=== PATIENT | male | born 1945 | race Caucasian/White ===

== ENCOUNTER 2018-06-05 20:43 | Emergency (ER) | payer OTHER ==
--- NOTE | 2018-06-05 21:13 | ERPHSYRPT ---
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 Exam Limitations: clinical condition Patient Subjective Stated Complaint: shortness of breath Triage Nursing Assessment: Pt was at a ball game as a spectator and suddenly became diaphoretic, nausea, short of breath, and butterfield in color, hx of heart problems, lungs clear, vitals wnl, pulses normal, Physician History: PATIENT WITH A HISTORY OF COPD, CORONARY ARTERY DISEASE, POST CABG X 4 VESSEL 2007, FOLLOWED BY STENT INSERTION X 4, IN 2008, 2009 AND 2016, STAGE 4 RENAL INSUFFICIENCY, COMPLAINS OF TRANSIENT EPISODE OF DYSPNEA, UNABLE TO TAKE A DEEP BREATH, DIAPHORESIS AND PALE BUTTERFIELD DISCOLORATION WHILE WATCHING A BALL GAME OUTSIDE PRIOR TO ARRIVAL. STATES PATIENT DEVELOPED MARKED EXERTIONAL DYSPNEA WHILE WALKING TO HIS VEHICLE. DENIES CHEST PAIN, DYSPNEA, COUGH OR FEVER, OR DYSPNEA UPON ARRIVAL TO EMERGENCY. Timing/Duration: today Activities at Onset: rest Severity of Dyspnea-Max: moderate Severity of Dyspnea-Current: none Possible Cause: occasional episodes Modifying Factors: Improves With: nothing Associated Symptoms: dizziness International travel in last 2 weeks: No Allergies/Adverse Reactions: No Known Drug Allergies Allergy (Verified 06/05/18 20:53) Home Medications: Albuterol Sulfate [Proventil Hfa] 1 inh PO UD PRN 03/20/12 [History] Aspirin [Aspir 81] 81 mg PO DAILY 03/20/12 [History] Metoprolol Tartrate 25 mg [Lopressor 25MG Tab] 100 mg PO BID 03/20/12 [ History] Omeprazole 20 MG [Prilosec 20 mg] 20 mg PO DAILY 03/20/12 [History] Pravastatin Sodium 80 mg PO HS 03/20/12 [History] Cyanocobalamin (Vitamin B-12) [Vitamin B-12] 500 mcg PO DAILY 06/05/18 [History] Isosorbide Mononitrate 30 mg [Imdur 30 MG] 30 mg PO DAILY 06/05/18 [History ] Ranolazine 500 MG [Ranexa 500 MG] 500 mg PO BID 06/05/18 [History] Ticagrelor [Brilinta] 90 mg PO BID 06/05/18 [History] Hx Tetanus, Diphtheria Vaccination/Date Given: No Hx Influenza Vaccination/Date Given: (REFUSED) Hx Pneumococcal Vaccination/Date Given: (REFUSED) - Review of Systems Constitutional: No Fever, No Chills Eyes: No Symptoms Ears, Nose, & Throat: No Symptoms Respiratory: Cough, Dyspnea, Dyspnea on Exertion (MANUEL) Cardiac: Other (DIAPHORESIS), No Chest Pain, No Edema, No Syncope Abdominal/Gastrointestinal: No Abdominal Pain, No Nausea, No Vomiting, No Diarrhea Genitourinary Symptoms: No Dysuria Musculoskeletal: No Back Pain, No Neck Pain Skin: No Rash Neurological: No Dizziness, No Focal Weakness, No Sensory Changes Psychological: No Symptoms Endocrine: No Symptoms All Other Systems: Reviewed and Negative - Past Medical History Pertinent Past Medical History: Yes Neurological History: No Pertinent History ENT History: No Pertinent History Cardiac History: Coronary Artery Disease, High Cholesterol, Hypertension Respiratory History: COPD Endocrine Medical History: No Pertinent History Musculoskeletal History: No Pertinent History GI Medical History: GERD History: No Pertinent History Psycho-Social History: No Pertinent History Male Reproductive Disorders: No Pertinent History Other Medical History: stage 4 renal failure - Past Surgical History Past Surgical History: Yes Neuro Surgical History: No Pertinent History Cardiac: CABG, Cardiac Catheterization, Cardiac Stent Respiratory: No Pertinent History Gastrointestinal: No Pertinent History Genitourinary: No Pertinent History Musculoskeletal: No Pertinent History Male Surgical History: No Pertinent History Other Surgical History: 5 stents - Social History Smoking Status: Current every day smoker How long have you smoked: 50 YEARS Exposure to second hand smoke: Yes Drug Use: none Patient Lives Alone: No - Nursing Vital Signs Nursing Vital Signs: Initial Vital Signs Pulse Rate 60 06/05/18 20:44 Respiratory Rate 20 06/05/18 20:44 Blood Pressure 127/83 06/05/18 20:44 O2 Sat by Pulse Oximetry 96 06/05/18 20:44 Pain Scale Pain Intensity 0 - Physical Exam General Appearance: no apparent distress, alert Eye Exam: PERRL/EOMI Ears, Nose, Throat Exam: hearing grossly normal Neck Exam: normal inspection, supple Respiratory Exam: normal breath sounds Cardiovascular/Chest Exam: normal heart sounds, regular rate/rhythm Abdominal/Gastrointestinal Exam: soft, normal bowel sounds, No tenderness, No distention, No mass Extremity Exam: non-tender, normal range of motion, normal inspection, no calf tenderness, no pedal edema Peripheral Pulses Exam: carotid (R): 2+, carotid (L): 2+, femoral (R): 2+, femoral (L): 2+, dorsalis-pedis (R): 2+, dorsalis-pedis (L): 2+ Neurologic Exam: alert, oriented x 3, cooperative, 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 assembler kitchen II-XII nml as tested, sensation nml, No motor deficits Skin Exam: normal color, warm, No dry SpO2 Interpretation: normal SpO2: 96 - Course EKG Interpreted by Me: RATE, Sinus Rhythm, NORMAL AXIS, Non-specific ST Changes Ordered Tests: Active Orders 24 hr Category Date Time Status Plastic Welder STAT Care 06/05/18 21:05 Active EKG-ER Only STAT Care 06/05/18 21:00 Active IV Insertion STAT Care 06/05/18 21:00 Active Oxygen-ED Only NASAL CANNULA 2 lpm Care 06/05/18 21:05 Active CHEST 1 VIEW (PORTABLE) Stat Exams 06/05/18 21:05 Taken CBC W DIFF Stat Lab 06/05/18 21:05 Completed CMP Stat Lab 06/05/18 21:05 Completed D-DIMER QUANTITATION Stat Lab 06/05/18 21:05 Completed NT PRO BNP Stat Lab 06/05/18 21:05 Completed PROTIME WITH INR Stat Lab 06/05/18 21:05 Completed TROPONIN Q3H Lab 06/05/18 21:05 Completed TROPONIN Q3H Lab 06/06/18 00:15 Ordered TROPONIN Q3H Lab 06/06/18 03:15 Ordered TROPONIN Q3H Lab 06/06/18 06:15 Ordered TROPONIN Q3H Lab 06/06/18 09:15 Ordered UA W/RFX UR CULTURE Stat Lab 06/05/18 21:33 Completed Peak Expiratory Flow Rate ONCE RT 06/05/18 21:06 Completed Respiratory Therapy Assessment DAILY RT 06/05/18 21:30 Completed Medication Summary Generic Name Dose Route Start Last Admin Trade Name Freq PRN Reason Stop Dose Admin Sodium Chloride 1,000 mls @ 30 mls/hr 06/05/18 21:15 06/05/18 21:22 Sodium Chloride 0.9% 1000 Ml IV 07/05/18 21:14 30 mls/hr .Q24H LIZET Administration Discontinued Medications Generic Name Dose Route Start Last Admin Trade Name Freq PRN Reason Stop Dose Admin Aspirin 243 mg 06/05/18 22:13 06/05/18 22:25 Baby Aspirin 81 Mg Chew PO 06/05/18 22:14 243 mg STAT ONE Administration Aspirin Confirm 06/05/18 22:24 Baby Aspirin 81 Mg Chew Administered 06/05/18 22:25 Dose 243 mg .ROUTE .STK-MED ONE Lab/Rad Data: Laboratory Result Diagrams 06/05/18 21:05 06/05/18 21:05 Laboratory Results 06/05/18 06/05/18 06/05/18 Range/Units 21:33 21:05 21:05 WBC (4.0-10.5) K/mm3 RBC (4.1-5.6) M/mm3 Hgb (12.5-18.0) gm/dl Hct (42-50) % MCV (78-100) fl MCH (26-32) pg MCHC (32-36) g/dl RDW (11.5-14.0) % Plt Count (150-450) K/mm3 MPV (6-9.5) fl Gran % (36.0-66.0) % Eos # (Auto) (0-0.5) Absolute Lymphs (auto) (1.0-4.6) Absolute Monos (auto) (0.0-1.3) Lymphocytes % (24.0-44.0) % Monocytes % (0.0-12.0) % Eosinophils % (0.00-5.0) % Basophils % (0.0-0.4) % Absolute Granulocytes (1.4-6.9) Basophils # (0-0.4) PT 11.5 (8.83-12.87) SECONDS INR 0.99 (0.8-3.0) D-Dimer 407 (215-500) ng/mL Sodium (137-145) mmol/L Potassium (3.5-5.1) mmol/L Chloride (98-107) mmol/L Carbon Dioxide (22-30) mmol/L Anion Gap (5-15) MEQ/L BUN (9-20) mg/dL Creatinine (0.66-1.25) mg/dL Estimated GFR ML/MIN Glucose (74-106) mg/dL Calcium (8.4-10.2) mg/dL Total Bilirubin (0.2-1.3) mg/dL AST (17-59) U/L ALT (0-50) U/L Alkaline Phosphatase (38-126) U/L Troponin I < 0.012 (0.000-0.034) ng/mL NT-Pro-B Natriuret Pep (0-900) pg/mL Serum Total Protein (6.3-8.2) g/dL Albumin (3.5-5.0) g/dL Ur Collection Type CLEAN CATCH Urine Color DARK YELLOW (YELLOW) Urine Appearance CLEAR (CLEAR) Urine pH 5.0 (5-6) Ur Specific Manning 1.025 (1.005-1.025) Urine Protein NEGATIVE (Negative) Urine Ketones NEGATIVE (NEGATIVE) Urine Blood NEGATIVE (0-5) Garland/ul Urine Nitrite NEGATIVE (NEGATIVE) Urine Bilirubin NEGATIVE (NEGATIVE) Urine Urobilinogen NORMAL (0-1) mg/dL Ur Leukocyte Esterase NEGATIVE (NEGATIVE) Urine Culture Reflexed NO (NO) Urine Glucose NEGATIVE (NEGATIVE) mg/dL Specimen Received 06/05/18 2133 06/05/18 06/05/18 Range/Units 21:05 21:05 WBC 8.5 (4.0-10.5) K/mm3 RBC 4.60 (4.1-5.6) M/mm3 Hgb 14.9 (12.5-18.0) gm/dl Hct 42.9 (42-50) % MCV 93.3 (78-100) fl MCH 32.4 H (26-32) pg MCHC 34.7 (32-36) g/dl RDW 14.1 H (11.5-14.0) % Plt Count 191 (150-450) K/mm3 MPV 10.4 H (6-9.5) fl Gran % 69.9 H (36.0-66.0) % Eos # (Auto) 0.21 (0-0.5) Absolute Lymphs (auto) 1.69 (1.0-4.6) Absolute Monos (auto) 0.61 (0.0-1.3) Lymphocytes % 19.8 L (24.0-44.0) % Monocytes % 7.2 (0.0-12.0) % Eosinophils % 2.5 (0.00-5.0) % Basophils % 0.6 (0.0-0.4) % Absolute Granulocytes 5.96 (1.4-6.9) Basophils # 0.05 (0-0.4) PT (8.83-12.87) SECONDS INR (0.8-3.0) D-Dimer (215-500) ng/mL Sodium 144 (137-145) mmol/L Potassium 4.1 (3.5-5.1) mmol/L Chloride 108 H (98-107) mmol/L Carbon Dioxide 26 (22-30) mmol/L Anion Gap 14.0 (5-15) MEQ/L BUN 18 (9-20) mg/dL Creatinine 1.78 H (0.66-1.25) mg/dL Estimated GFR 40.1 ML/MIN Glucose 107 H (74-106) mg/dL Calcium 8.9 (8.4-10.2) mg/dL Total Bilirubin 0.40 (0.2-1.3) mg/dL AST 22 (17-59) U/L ALT 31 (0-50) U/L Alkaline Phosphatase 97 (38-126) U/L Troponin I (0.000-0.034) ng/mL NT-Pro-B Natriuret Pep 186 (0-900) pg/mL Serum Total Protein 7.3 (6.3-8.2) g/dL Albumin 4.2 (3.5-5.0) g/dL Ur Collection Type Urine Color (YELLOW) Urine Appearance (CLEAR) Urine pH (5-6) Ur Specific Manning (1.005-1.025) Urine Protein (Negative) Urine Ketones (NEGATIVE) Urine Blood (0-5) Garland/ul Urine Nitrite (NEGATIVE) Urine Bilirubin (NEGATIVE) Urine Urobilinogen (0-1) mg/dL Ur Leukocyte Esterase (NEGATIVE) Urine Culture Reflexed (NO) Urine Glucose (NEGATIVE) mg/dL Specimen Received - Progress Progress Note: 06/05/18 21:23 PEAK FLOW EXPIRATORY 520, IV NORMAL SALINE 30ML/HR, 06/05/18 22:01 PATIENT GIVEN HOME MEDS BRILLINTA 90MG AND PRAVASTATIN 80MG WITH ASPIRIN 243MG ORALLY 06/05/18 22:30 Discussed with : Other (DISCUSSED WITH DR HOWELL AT [facility] IN AT 2210 ACCEPTS TRANSFER VIA [facility]) - Departure Time of Disposition: 22:45 Departure Disposition: Transfer Clinical Impression: CARDIAC ASTHMA Condition: Stable Critical Care Time: No Referrals: [facility]OSPITAL,'S [Primary Care Provider] -
[2018-06-05] MEDS ORDERED: Sodium Chloride 0.9% 1000 ML 1,000 ML IV SCH (21:15)
[2018-06-05 21:17] LABS: BASOPHIL % 0.6 % (0.0-0.4); Basophil (Absolute #) 0.05 (0-0.4); Eosinophil % 2.5 % (0.00-5.0); Eosinophil (Absolute #) 0.21 (0-0.5); Granulocyte Absolute (ANC) 5.96 (1.4-6.9); Granulocytes % 69.9 % (36.0-66.0); Hematocrit 42.9 % (42-50); Hemoglobin 14.9 gm/dl (12.5-18.0); Lymphocyte (Absolute #) 1.69 (1.0-4.6); Lymphocytes % 19.8 % (24.0-44.0); Mean Cell Volume 93.3 fl (78-100); Mean Corpuscular Hemoglobin 32.4 pg (26-32); Mean Corpuscular Hgb Concent. 34.7 g/dl (32-36); Mean Platelet Volume 10.4 fl (6-9.5); Monocyte (Absolute #) 0.61 (0.0-1.3); Monocytes % 7.2 % (0.0-12.0); Platelet Count 191 K/mm3 (150-450); Red Cell Distribution Width 14.1 % (11.5-14.0); White Blood Count 8.5 K/mm3 (4.0-10.5)
[2018-06-05] MEDS ORDERED: Sodium Chloride 0.9% 1000 ML 1,000 ML ONE (21:18)
[2018-06-05 21:28] LABS: INR 0.99 (0.8-3.0)
[2018-06-05 21:42] LABS: ALBUMIN 4.2 g/dL (3.5-5.0); BILIRUBIN,TOTAL 0.4 mg/dL (0.2-1.3); Calcium 8.9 mg/dL (8.4-10.2); Creatinine 1 1.78 mg/dL (0.66-1.25); Potassium 4.1 mmol/L (3.5-5.1); Total Protein 7.3 g/dL (6.3-8.2)
[2018-06-05 21:51] LABS: Appearance CLEAR (CLEAR); Bilirubin NEGATIVE (NEGATIVE); Blood NEGATIVE Ery/ul (0-5); Glucose NEGATIVE (NEGATIVE); Ketones NEGATIVE (NEGATIVE); Leukocyte Esterase NEGATIVE (NEGATIVE); Nitrite NEGATIVE (NEGATIVE); Protein,Urine Dip NEGATIVE (Negative); Specific Gravity 1.025 (1.005-1.025); Urobilinogen NORMAL mg/dL (0-1)
[2018-06-05 22:02] VITALS: O2SAT 96
[2018-06-05] MEDS ORDERED: BABY ASPIRIN 81 MG CHEW PO ONE (22:13)
[2018-06-05] MEDS ORDERED: BABY ASPIRIN 81 MG CHEW ONE (22:24)
[2018-06-05 23:16] VITALS: BP 109/75; PULSE 62
--- NOTE | 2018-06-06 12:13 | XRAY ---
Indication: Dyspnea. Comparison: March 20, 2012. Portable chest now demonstrates left costophrenic angle blunting favoring pleural effusion/pleural thickening. Remaining heart and lungs unremarkable again with CABG surgery. Bony thorax intact.
== END 2018-06-05 23:15 | disposition short-term general hospital (02) ==
LOC: SUPCPDRO 20:43 → ED 20:43
DX: I50.1 Left ventricular failure, unspecified (principal); R42 Dizziness and giddiness; R61 Generalized hyperhidrosis; R06.00 Dyspnea, unspecified; Z95.1 Presence of aortocoronary bypass graft; Z79.82 Long term (current) use of aspirin; Z79.899 Other long term (current) drug therapy
CPT/HCPCS: 36000; 36415; 71045; 80053; 81002; 83880; 84484; 85025; 85379; 85610; 93005; 93041; 94150; 96360; 96361; 99285; A9270-GY

== ENCOUNTER 2019-12-02 12:05 | Emergency (ER) | payer OTHER, MEDICARE ==
[2019-12-02] MEDS ORDERED: Zofran 4 MG/2 ML VIAL IV ONE (12:16)
[2019-12-02] MEDS ORDERED: Sodium Chloride 0.9% 1000 ML 1,000 ML IV STA (12:16)
[2019-12-02] MEDS ORDERED: SUBLIMAZE 100 MCG/2 ML IV ONE (12:16)
[2019-12-02 12:35] LABS: Absolute Neutrophil Ct (ANC) 5.04 (1.4-6.9); BASOPHIL % 0.7 % (0.0-0.4); Basophil (Absolute #) 0.05 (0-0.4); Eosinophil % 2.7 % (0.00-5.0); Hematocrit 45.4 % (42-50); Hemoglobin 15.1 gm/dl (12.5-18.0); Lymphocyte (Absolute #) 1.59 (1.0-4.6); Lymphocytes % 21.5 % (24.0-44.0); Mean Cell Volume 94.2 fl (78-100); Mean Corpuscular Hemoglobin 31.3 pg (26-32); Mean Corpuscular Hgb Concent. 33.3 g/dl (32-36); Mean Platelet Volume 10.4 fl (7.5-11.0); Monocyte (Absolute #) 0.51 (0.0-1.3); Monocytes % 6.9 % (0.0-12.0); Neutrophil % 68.2 % (36.0-66.0); Platelet Count 182 K/mm3 (150-450); Red Blood Count 4.82 M/mm3 (4.1-5.6); White Blood Count 7.4 K/mm3 (4.0-10.5)
[2019-12-02 12:49] LABS: INR 1.01 (0.8-3.0); PROTIME 11.4 SECONDS (8.83-12.87)
[2019-12-02 12:51] LABS: PTT 32.8 SECONDS (24.1-36.1)
--- NOTE | 2019-12-02 12:54 | XRAY ---
Indication: Headache. Comparison: June 05, 2018. Portable chest is hyperinflated and clear. Heart is not enlarged again with CABG surgery. Bony thorax intact again with mild degenerative changes. Impression: Nonacute hyperinflated chest with chronic features.
--- NOTE | 2019-12-02 12:59 | XRAY ---
Indication: Right-sided headache. Multiple contiguous axial images obtained through the head without contrast. Comparison: None Age-appropriate global atrophy and mild periventricular degenerative micro-ischemia bilaterally. Also small subcentimeter mid periventricular remote infarcts. No acute intracranial hemorrhage, abnormal extra-axial fluid collection, or mass effect. Fourth ventricle is midline without hydrocephalus. Bony calvarium intact. Minimal mucosal thickening floor of the maxillary sinuses, right greater than left. Mastoid air cells are clear. 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 Minimal paranasal sinus disease.
[2019-12-02 13:16] LABS: ALBUMIN 4.1 g/dL (3.5-5.0); ALKALINE PHOSPHATASE 83 U/L (38-126); AMYLASE 98 U/L (30-110); ANION GAP 9.6 MEQ/L (5-15); BLOOD UREA NITROGEN 18 mg/dL (9-20); CHLORIDE 107 mmol/L (98-107); Carbon Dioxide 29 mmol/L (22-30); Creatinine 1 1.85 mg/dL (0.66-1.25); Glucose 111 mg/dL (74-106); LIPASE 173 U/L (23-300); Potassium 3.9 mmol/L (3.5-5.1); SGOT/AST 25 U/L (17-59); SGPT/ALT 26 U/L (0-50); SODIUM 142 mmol/L (137-145); Total Protein 7.6 g/dL (6.3-8.2)
[2019-12-02 13:20] LABS: TROPONIN < 0.012 ng/mL (0.000-0.034)
[2019-12-02] MEDS ORDERED: SUBLIMAZE 100 MCG/2 ML ONE (13:35)
[2019-12-02] MEDS ORDERED: Sodium Chloride 0.9% 1000 ML 1,000 ML ONE (13:35)
[2019-12-02] MEDS ORDERED: Zofran 4 MG/2 ML VIAL ONE (13:35)
[2019-12-02 15:12] VITALS: BP 148/82; PULSE 57
[2019-12-02 15:16] VITALS: O2SAT 93
--- NOTE | 2019-12-02 15:16 | ERPHSYRPT ---
- History of Present Illness Patient Subjective Stated Complaint: PT states "I have been having a horrible headache and numbness to my right eye. My right lower back is hurting as well. THis has been going on for 5 days." Triage Nursing Assessment: Pt presented alert and oriented X 3, skin wpd PT ambulates with a limp. PT able to speak in clear full sentences. Pt in no apparent repsiratory distress. Physician History: Patient is a 74-year-old male who was referred to the ER by the [facility] because of concerns that he might be having a stroke. However he has had symptoms for 5 to 6 days which included right-sided headache and some slightly blurred vision in the right eye dates that when he coughs his headache is severe and centered around the right eye. Also has some right lower back pain denies any chills fever sweats Timing/Duration: day(s) (6) Quality: stabbing, throbbing Head Pain Location: frontal Severity of Pain-Max: moderate Severity of Pain-Current: moderate Recent Head Trauma: no recent headache/trauma, occasional headaches Associated Symptoms: sensitive to light, No nausea/vomiting Previous symptoms: no prior history Allergies/Adverse Reactions: No Known Drug Allergies Allergy (Verified 06/05/18 20:53) Home Medications: Aspirin [Aspir 81] 81 mg PO DAILY 03/20/12 [History] Metoprolol Tartrate 25 mg [Lopressor 25MG Tab] 100 mg PO BID 03/20/12 [ History] Isosorbide Mononitrate 30 mg [Imdur 30 MG] 60 mg PO DAILY 06/05/18 [History ] Ranolazine 500 MG [Ranexa 500 MG] 500 mg PO BID 06/05/18 [History] Esomeprazole Magnesium [Nexium 24Hr] 20 mg PO DAILY 12/02/19 [History] Ezetimibe 10 mg [Zetia 10 MG] 10 mg PO DAILY 12/02/19 [History] Lisinopril 20 mg [Zestril 20 MG] 20 mg PO DAILY 12/02/19 [History] Rosuvastatin Calcium 5 mg PO WEEKLY 12/02/19 [History] Hx Tetanus, Diphtheria Vaccination/Date Given: No Hx Influenza Vaccination/Date Given: No Hx Pneumococcal Vaccination/Date Given: No Immunizations Up to Date: Yes - Review of Systems Constitutional: No Fever, No Chills Eyes: Eye Pain, Photophobia Ears, Nose, & Throat: No Symptoms, Nose Discharge Respiratory: Cough, No Dyspnea Cardiac: No Chest Pain, No Edema, No Syncope Abdominal/Gastrointestinal: No Abdominal Pain, No Nausea, No Vomiting, No Diarrhea Genitourinary Symptoms: No Dysuria Musculoskeletal: No Back Pain, No Neck Pain Skin: No Rash Neurological: No Dizziness, No Focal Weakness, No Sensory Changes Psychological: No Symptoms Endocrine: No Symptoms All Other Systems: Reviewed and Negative - Past Medical History Pertinent Past Medical History: Yes Neurological History: No Pertinent History ENT History: No Pertinent History Cardiac History: Coronary Artery Disease, High Cholesterol, Hypertension Respiratory History: COPD Endocrine Medical History: No Pertinent History Musculoskeletal History: No Pertinent History GI Medical History: GERD History: No Pertinent History Psycho-Social History: No Pertinent History Male Reproductive Disorders: No Pertinent History Other Medical History: stage 4 renal failure - Past Surgical History Past Surgical History: Yes Neuro Surgical History: No Pertinent History Cardiac: CABG, Cardiac Catheterization, Cardiac Stent Respiratory: No Pertinent History Gastrointestinal: No Pertinent History Genitourinary: No Pertinent History Musculoskeletal: No Pertinent History Male Surgical History: No Pertinent History Other Surgical History: 5 stents - Social History Smoking Status: Former smoker How long have you smoked: 50 YEARS Exposure to second hand smoke: Yes Drug Use: none Patient Lives Alone: No - Nursing Vital Signs Nursing Vital Signs: Initial Vital Signs Temperature 97.3 F 12/02/19 12:10 Pulse Rate 78 12/02/19 12:10 Respiratory Rate 20 12/02/19 12:10 Blood Pressure 183/106 12/02/19 12:10 O2 Sat by Pulse Oximetry 97 12/02/19 12:10 Pain Scale Pain Intensity 4 - Physical Exam General Appearance: mild distress Eye Exam: PERRL/EOMI Ears, Nose, Throat Exam: normal ENT inspection, moist mucous membranes Neck Exam: normal inspection, supple, full range of motion, No meningismus Respiratory Exam: normal breath sounds, lungs clear Cardiovascular Exam: regular rate/rhythm, normal heart sounds Gastrointestinal/Abdominal Exam: soft, No tenderness, No distention Back Exam: normal inspection, normal range of motion Mental Status Exam: alert, oriented x 3, cooperative benefit authorizer Exam: normal speech, PERRL, No facial droop Coordination/Gait Exam: normal cerebellar function Motor/Sensory Exam: no motor deficit, no sensory deficit Skin Exam: normal color, warm, dry, No rash SpO2: 93 - Course Nursing assessment & vital signs reviewed: Yes EKG Interpreted by Me: RATE (74), NORMAL AXIS, NORMAL INTERVALS, NORMAL QRS, Non -specific ST Changes - CT Exams Head CT Interpretation: Other (Interpreted by radiology as old remote small infarcts and some sinus disease) Ordered Tests: Active Orders 24 hr Category Date Time Status Gang Drill Operator STAT Care 12/02/19 12:15 Active EKG-ER Only STAT Care 12/02/19 12:14 Active IV Insertion STAT Care 12/02/19 12:16 Active IV Insertion-2nd Peripheral STAT Care 12/02/19 12:14 Active NPO (ED) STAT Care 12/02/19 12:14 Active Pulse Oximetry (ED) STAT Care 12/02/19 12:14 Active CHEST 1 VIEW (PORTABLE) Stat Exams 12/02/19 12:14 Completed HEAD WITHOUT CONTRAST [CT] Stat Exams 12/02/19 12:14 Completed AMYLASE Routine Lab 12/02/19 12:30 Completed CBC W DIFF Stat Lab 12/02/19 12:30 Completed CMP Routine Lab 12/02/19 12:30 Completed LIPASE Routine Lab 12/02/19 12:30 Completed Lactic Acid Stat Lab 12/02/19 12:16 Completed PROTIME WITH INR Stat Lab 12/02/19 12:30 Completed PTT Stat Lab 12/02/19 12:30 Completed SED RATE [Erythrocyte Sedimentation Rate] Stat Lab 12/02/19 12:32 Completed TROPONIN Q3H Lab 12/02/19 12:30 Completed TROPONIN Q3H Lab 12/02/19 15:15 Ordered TROPONIN Q3H Lab 12/02/19 18:15 Ordered TROPONIN Q3H Lab 12/02/19 21:15 Ordered TROPONIN Q3H Lab 12/03/19 00:15 Ordered UA W/RFX UR CULTURE Stat Lab 12/02/19 12:14 Uncollected Medication Summary Discontinued Medications Generic Name Dose Route Start Last Admin Trade Name Freq PRN Reason Stop Dose Admin Fentanyl Citrate 50 mcg 12/02/19 12:16 12/02/19 13:39 Sublimaze 100 Mcg/2 Ml IV 12/02/19 12:17 50 mcg STAT ONE Administration Fentanyl Citrate Confirm 12/02/19 13:35 Sublimaze 100 Mcg/2 Ml Administered 12/02/19 13:36 Dose 100 mcg .ROUTE .STK-MED ONE Sodium Chloride 1,000 mls @ 999 mls/hr 12/02/19 12:16 12/02/19 14:41 Sodium Chloride 0.9% 1000 Ml IV 12/02/19 13:16 Infused .Q1H1M STA Infusion Sodium Chloride Confirm 12/02/19 13:35 Sodium Chloride 0.9% 1000 Ml Administered 12/02/19 13:36 Dose 1,000 mls @ ud .ROUTE .STK-MED ONE Ondansetron HCl 4 mg 12/02/19 12:16 12/02/19 13:39 Zofran 4 Mg/2 Ml Vial IV 12/02/19 12:17 4 mg STAT ONE Administration Ondansetron HCl Confirm 12/02/19 13:35 Zofran 4 Mg/2 Ml Vial Administered 12/02/19 13:36 Dose 4 mg .ROUTE .STK-MED ONE Lab/Rad Data: Laboratory Result Diagrams 12/02/19 12:30 12/02/19 12:30 Laboratory Results 12/02/19 12/02/19 12/02/19 Range/Units 12:32 12:30 12:30 WBC (4.0-10.5) K/mm3 RBC (4.1-5.6) M/mm3 Hgb (12.5-18.0) gm/dl Hct (42-50) % MCV (78-100) fl MCH (26-32) pg MCHC (32-36) g/dl RDW (11.5-14.0) % Plt Count (150-450) K/mm3 MPV (7.5-11.0) fl Gran % (36.0-66.0) % Eos # (Auto) (0-0.5) Absolute Lymphs (auto) (1.0-4.6) Absolute Monos (auto) (0.0-1.3) Lymphocytes % (24.0-44.0) % Monocytes % (0.0-12.0) % Eosinophils % (0.00-5.0) % Basophils % (0.0-0.4) % Absolute Granulocytes (1.4-6.9) Basophils # (0-0.4) ESR 7 (0-15) mm/hr PT 11.4 (8.83-12.87) SECONDS INR 1.01 (0.8-3.0) APTT 32.8 (24.1-36.1) SECONDS Sodium 142 (137-145) mmol/L Potassium 3.9 (3.5-5.1) mmol/L Chloride 107 (98-107) mmol/L Carbon Dioxide 29 (22-30) mmol/L Anion Gap 9.6 (5-15) MEQ/L BUN 18 (9-20) mg/dL Creatinine 1.85 H (0.66-1.25) mg/dL Estimated GFR 38.2 ML/MIN Glucose 111 H (74-106) mg/dL Lactic Acid (0.4-2.0) Calcium 9.0 (8.4-10.2) mg/dL Total Bilirubin 0.60 (0.2-1.3) mg/dL AST 25 (17-59) U/L ALT 26 (0-50) U/L Alkaline Phosphatase 83 (38-126) U/L Troponin I < 0.012 (0.000-0.034) ng/mL Serum Total Protein 7.6 (6.3-8.2) g/dL Albumin 4.1 (3.5-5.0) g/dL Amylase 98 (30-110) U/L Lipase 173 (23-300) U/L 12/02/19 12/02/19 Range/Units 12:30 12:16 WBC 7.4 (4.0-10.5) K/mm3 RBC 4.82 (4.1-5.6) M/mm3 Hgb 15.1 (12.5-18.0) gm/dl Hct 45.4 (42-50) % MCV 94.2 (78-100) fl MCH 31.3 (26-32) pg MCHC 33.3 (32-36) g/dl RDW 14.0 (11.5-14.0) % Plt Count 182 (150-450) K/mm3 MPV 10.4 (7.5-11.0) fl Gran % 68.2 H (36.0-66.0) % Eos # (Auto) 0.20 (0-0.5) Absolute Lymphs (auto) 1.59 (1.0-4.6) Absolute Monos (auto) 0.51 (0.0-1.3) Lymphocytes % 21.5 L (24.0-44.0) % Monocytes % 6.9 (0.0-12.0) % Eosinophils % 2.7 (0.00-5.0) % Basophils % 0.7 (0.0-0.4) % Absolute Granulocytes 5.04 (1.4-6.9) Basophils # 0.05 (0-0.4) ESR (0-15) mm/hr PT (8.83-12.87) SECONDS INR (0.8-3.0) APTT (24.1-36.1) SECONDS Sodium (137-145) mmol/L Potassium (3.5-5.1) mmol/L Chloride (98-107) mmol/L Carbon Dioxide (22-30) mmol/L Anion Gap (5-15) MEQ/L BUN (9-20) mg/dL Creatinine (0.66-1.25) mg/dL Estimated GFR ML/MIN Glucose (74-106) mg/dL Lactic Acid 1.1 (0.4-2.0) Calcium (8.4-10.2) mg/dL Total Bilirubin (0.2-1.3) mg/dL AST (17-59) U/L ALT (0-50) U/L Alkaline Phosphatase (38-126) U/L Troponin I (0.000-0.034) ng/mL Serum Total Protein (6.3-8.2) g/dL Albumin (3.5-5.0) g/dL Amylase (30-110) U/L Lipase (23-300) U/L - Progress Progress: improved Air Movement: good Blood Culture(s) Obtained: No Antibiotics given: Yes - Departure Departure Disposition: Home Clinical Impression: Sinusitis Condition: Stable Critical Care Time: No Referrals: [facility],'[facility] [Primary Care Provider] - Instructions: Sinusitis, Adult (DC) Prescriptions: Cephalexin Mh 500 mg [Keflex 500 mg] 500 mg PO TID #30 capsule
[2019-12-02 16:17] LABS: Appearance SLIGHTLY CLOUDY (CLEAR); Bacteria RARE /HPF (NEGATIVE); Bilirubin NEGATIVE (NEGATIVE); Blood NEGATIVE Ery/ul (0-5); Glucose NEGATIVE (NEGATIVE); Ketones NEGATIVE (NEGATIVE); Leukocyte Esterase NEGATIVE (NEGATIVE); Mucus SLIGHT /HPF (NEGATIVE); Nitrite NEGATIVE (NEGATIVE); Protein,Urine Dip NEGATIVE (Negative); Urobilinogen 2 mg/dL (0-1)
== END 2019-12-02 15:31 | disposition critical access hospital (66) ==
LOC: ED 12:05
DX: J32.9 Chronic sinusitis, unspecified (principal); R51 Headache; R20.0 Anesthesia of skin; Z79.899 Other long term (current) drug therapy; R05 Cough; I25.10 Atherosclerotic heart disease of native coronary artery without angina pectoris; E78.00 Pure hypercholesterolemia, unspecified; I10 Essential (primary) hypertension; Z95.1 Presence of aortocoronary bypass graft; J44.9 Chronic obstructive pulmonary disease, unspecified; N18.4 Chronic kidney disease, stage 4 (severe)
CPT/HCPCS: 36415; 70450; 71045; 80053; 81001; 82150; 83605; 83690; 84484; 85025; 85610; 85652; 85730; 93005; 93041; 94760; 96360; 96374; 96375; 99284; J2405; J3010

== ENCOUNTER 2021-02-28 15:56 | Emergency (ER) | payer OTHER, MEDICARE ==
[2021-02-28] MEDS ORDERED: Sodium Chloride 0.9% 1000 ML 1,000 ML ONE ×2 (15:59→16:18)
[2021-02-28] MEDS ORDERED: BABY ASPIRIN 81 MG CHEW PO ONE (16:00)
[2021-02-28] MEDS ORDERED: Heparin 5000 UNITS/0.5 ML (HIGH RISK MED) ONE (16:03)
[2021-02-28] MEDS ORDERED: ATROPINE SULFATE 1MG SYR ABBOJECT ONE ×2 (16:03→16:16)
[2021-02-28] MEDS ORDERED: Zofran 4 MG/2 ML VIAL ONE (16:04)
[2021-02-28] MEDS ORDERED: Heparin 25,000 units/D5W 250ML PREMIX 25,000 UNITS/250 ML BAG IV ONE (16:10)
[2021-02-28] MEDS ORDERED: MORPHINE SULFATE 2 MG INJ ONE ×2 (16:11→16:15)
[2021-02-28 17:00] VITALS: BP 123/68; PULSE 38; O2SAT 99
--- NOTE | 2021-02-28 18:04 | ERPHSYRPT ---
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 pt rates 10/10. pt appears diaphoretic, pale, pallor, and cool on arrival. Physician History: 75 yo wm in critical condition presents to ER w chest pain x 20 min. Pt diaphoretic/pale/vomiting/mild ALC. Pt taken to T2 and IV access started while EKG obtained. Pt w acute inferior GA/hypotensive. 324 ASA given/180mg po Brilinta/Heparin 5000u bolus/Pt bradycardic so 1L NS bolus ordered along w 1mg IV Atropine. [facility]I [facility] and multiple ambulance services called. HR increased to low 40's and BP improved into low 100's. Pacer pads also placed. 2nd IV obtained L antecubital fossa. Heparin drip 1000u/hr started before transfer. 2nd dose 1mg IV Ativan given before transfer. Pt in critical condition but w BP in mid 90's before transfer. Timing/Duration: other (20-30min) Activities at Onset: rest Quality: aching Location: substernal Severity of Pain-Max: severe Severity of Pain-Current: severe Modifying Factors: Improves With: nothing, sitting up Associated Symptoms: denies symptoms, nausea, shortness of breath, diaphoresis Prior Chest Pain/Cardiac Workup: cardiac cath (CABG) Nitro Today/Relief: 0.4 mg x 1 Aspirin Treatment Today: 325 mg x 1, provided by ED Allergies/Adverse Reactions: No Known Drug Allergies Allergy (Verified 06/05/18 20:53) Home Medications: Aspirin [Aspir 81] 81 mg PO DAILY 03/20/12 [History] Metoprolol Tartrate 25 mg [Lopressor 25MG Tab] 100 mg PO BID 03/20/12 [History] Isosorbide Mononitrate 30 mg [Imdur 30 MG] 60 mg PO DAILY 06/05/18 [History] Ranolazine 500 MG [Ranexa 500 MG] 500 mg PO BID 06/05/18 [History] Esomeprazole Magnesium [Nexium 24Hr] 20 mg PO DAILY 12/02/19 [History] Ezetimibe 10 mg [Zetia 10 MG] 10 mg PO DAILY 12/02/19 [History] Lisinopril 20 mg [Zestril 20 MG] 20 mg PO DAILY 12/02/19 [History] Rosuvastatin Calcium 5 mg PO WEEKLY 12/02/19 [History] Hx Tetanus, Diphtheria Vaccination/Date Given: No Hx Influenza Vaccination/Date Given: No Hx Pneumococcal Vaccination/Date Given: No Immunizations Up to Date: No Travel Risk - International Travel Have you traveled outside of the country in past 3 weeks: No - Coronavirus Screening Are you exhibiting any of the following symptoms?: No Close contact with a COVID-19 positive Pt in past 14-21 Days: No - Vaccine Status Have you recieved a Covid-19 vaccination: No - Review of Systems Cardiac: Chest Pain All Other Systems: Unable due to condition - Past Medical History Pertinent Past Medical History: Yes Neurological History: No Pertinent History ENT History: No Pertinent History Cardiac History: Coronary Artery Disease, High Cholesterol, Hypertension Respiratory History: COPD Endocrine Medical History: No Pertinent History Musculoskeletal History: No Pertinent History GI Medical History: GERD History: No Pertinent History Psycho-Social History: No Pertinent History Male Reproductive Disorders: No Pertinent History Other Medical History: stage 4 renal failure - Past Surgical History Past Surgical History: Yes Neuro Surgical History: No Pertinent History Cardiac: CABG, Cardiac Catheterization, Cardiac Stent Respiratory: No Pertinent History Gastrointestinal: No Pertinent History Genitourinary: No Pertinent History Musculoskeletal: No Pertinent History Male Surgical History: No Pertinent History Other Surgical History: 5 stents - Social History Smoking Status: Former smoker How long have you smoked: 50 YEARS Exposure to second hand smoke: Yes Drug Use: none Patient Lives Alone: No Significant Family History: no pertinent family hx - Nursing Vital Signs Nursing Vital Signs: Initial Vital Signs Pulse Rate 38 L 02/28/21 16:28 Respiratory Rate 22 02/28/21 16:28 Blood Pressure 123/68 02/28/21 16:28 O2 Sat by Pulse Oximetry 99 02/28/21 16:28 Pain Scale Pain Intensity 10 - Physical Exam General Appearance: severe distress Eye Exam: PERRL/EOMI, eyes nml inspection Ears, Nose, Throat Exam: normal ENT inspection, TMs normal Neck Exam: normal inspection, non-tender Respiratory Exam: lungs clear, airway intact Cardiovascular Exam: bradycardia Gastrointestinal/Abdomen Exam: soft, normal bowel sounds Rectal Exam: black stool Back Exam: normal inspection Extremity Exam: normal inspection, normal range of motion, pelvis stable Neurologic Exam: cooperative, 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 II-XII nml as tested, sensation nml, other (Pt lethargic but w good airway and cooperative), No motor deficits, No sensory deficit Skin Exam: diaphoresis Lymphatic Exam: No adenopathy SpO2 Interpretation: normal SpO2: 99 O2 Delivery: Room Air - Course Nursing assessment & vital signs reviewed: Yes EKG Interpreted by Me: RATE (Sinus wolfgang/Acute inferior GA/Normal QT-QTc/Also w elevation in V3) Ordered Tests: Medication Summary Discontinued Medications Generic Name Dose Route Start Last Admin Trade Name Freq PRN Reason Stop Dose Admin Atropine Sulfate Confirm 02/28/21 16:03 Atropine Sulfate 1mg Syr Abboject Administered 02/28/21 16:04 Dose 1 mg .ROUTE .STK-MED ONE Atropine Sulfate Confirm 02/28/21 16:16 Atropine Sulfate 1mg Syr Abboject Administered 02/28/21 16:17 Dose 1 mg .ROUTE .STK-MED ONE Heparin Sodium (Beef Lung) Confirm 02/28/21 16:03 Heparin 5000 Units/0.5 Ml (High Risk Med) Administered 02/28/21 16:04 Dose 5,000 unit .ROUTE .STK-MED ONE Sodium Chloride Confirm 02/28/21 15:59 Sodium Chloride 0.9% 1000 Ml Administered 02/28/21 16:00 Dose 1,000 mls @ ud .ROUTE .STK-MED ONE Heparin Sodium/Dextrose Confirm 02/28/21 16:10 Heparin 25,000 Units/D5w 250ml Premix Administered 02/28/21 16:11 Dose 25,000 units in 250 mls @ ud IV .STK-MED ONE Sodium Chloride Confirm 02/28/21 16:18 Sodium Chloride 0.9% 1000 Ml Administered 02/28/21 16:19 Dose 1,000 mls @ ud .ROUTE .STK-MED ONE Morphine Sulfate Confirm 02/28/21 16:11 Morphine Sulfate 2 Mg Inj Administered 02/28/21 16:12 Dose 2 mg .ROUTE .STK-MED ONE Morphine Sulfate Confirm 02/28/21 16:15 Morphine Sulfate 2 Mg Inj Administered 02/28/21 16:16 Dose 2 mg .ROUTE .STK-MED ONE Ondansetron HCl Confirm 02/28/21 16:04 Zofran 4 Mg/2 Ml Vial Administered 02/28/21 16:05 Dose 4 mg .ROUTE .STK-MED ONE - Progress Counseled pt/family regarding: diagnosis - Departure Departure Disposition: Transfer Clinical Impression: Acute inferior myocardial infarction Condition: Critical Critical Care Time: Yes Critical Care Time(excluding separately billable procedures): Critical 30-74 mins Referrals: [facility] [Primary Care Provider] -
== END 2021-02-28 16:28 | disposition short-term general hospital (02) ==
LOC: ED 15:56
DX: I21.19 ST elevation (STEMI) myocardial infarction involving other coronary artery of inferior wall (principal); Z79.899 Other long term (current) drug therapy; R07.9 Chest pain, unspecified; I25.810 Atherosclerosis of coronary artery bypass graft(s) without angina pectoris; I10 Essential (primary) hypertension; J44.9 Chronic obstructive pulmonary disease, unspecified; E78.00 Pure hypercholesterolemia, unspecified; K21.9 Gastro-esophageal reflux disease without esophagitis
CPT/HCPCS: 36000; 96365; 96374; 96375; 96376; 99284; J0461; J1644; J2270; J2405; A9270-GY

== ENCOUNTER 2024-02-19 11:53 | Emergency (ER) | payer OTHER ==
[2024-02-19 12:11] VITALS: TEMP 97.1
[2024-02-19] MEDS ORDERED: MORPHINE SULFATE 4 MG INJ ONE (12:28)
[2024-02-19] MEDS ORDERED: Zofran 4 MG/2 ML VIAL ONE (12:28)
[2024-02-19] MEDS: MORPHINE SULFATE 4 MG INJ IV ONE (12:30)
[2024-02-19] MEDS: Zofran 4 MG/2 ML VIAL IV ONE (12:30)
[2024-02-19 12:42] LABS: Absolute Neutrophil Ct (ANC) 6.06 x10^3/uL (1.4-6.9); BASOPHIL % 0.6 % (0.0-0.4); Basophil (Absolute #) 0.05 x10^3/uL (0-0.4); Eosinophil % 2.8 % (0.00-5.0); Eosinophil (Absolute #) 0.23 x10^3/uL (0-0.5); Hematocrit 39.9 % (42-50); Hemoglobin 13.4 g/dL (12.5-18.0); IMMATURE GRAN # 0.02 x10^3u/L (0.00-0.03); IMMATURE GRAN % 0.2 % (0.00-0.4); Lymphocyte (Absolute #) 1.34 x10^3/uL (1.0-4.6); Lymphocytes % 16.4 % (24.0-44.0); Mean Corpuscular Hemoglobin 31.2 pg (26-32); Mean Corpuscular Hgb Concent. 33.6 g/dL (32-36); Mean Platelet Volume 10.2 fL (7.5-11.0); Monocyte (Absolute #) 0.45 x10^3/uL (0.0-1.3); Monocytes % 5.5 % (0.0-12.0); Neutrophil % 74.5 % (36.0-66.0); Platelet Count 143 x10^3/uL (150-450); Red Blood Count 4.29 x10^6/uL (4.1-5.6); Red Cell Distribution Width 13.5 % (11.5-14.0); White Blood Count 8.2 x10^3/uL (4.0-10.5)
[2024-02-19 12:55] LABS: Appearance Clear (Clear); Bacteria None Seen /HPF (None Seen); Bilirubin Negative (Negative); Blood Negative (Negative); Epithelial Cells None Seen /HPF (None Seen); Glucose, Urine Negative (Negative); Hyaline Casts NONE SEEN /LPF (0-2); Ketones Negative (Negative); Leukocyte Esterase Negative (Negative); Nitrite Negative (Negative); Protein,Urine Dip 30 (Negative); RBC 0-2 /HPF (0-5); Specific Gravity 1.025 (1.005-1.030); WBC 0-2 /HPF (0-5)
[2024-02-19 12:55] LABS: ALBUMIN 3.7 g/dL (3.5-5.0); ANION GAP 10.3 MEQ/L (5-15); BILIRUBIN,TOTAL 0.5 mg/dL (0.2-1.3); Calcium 8.3 mg/dL (8.4-10.2); Creatinine 1 1.5 mg/dL (0.66-1.25); EST GLOMERULAR FILTRATION RATE 47.4 ML/MIN; Potassium 3.7 mmol/L (3.5-5.1); Total Protein 6.8 g/dL (6.3-8.2)
[2024-02-19 12:56] LABS: ADD URINE CULTURE? NO (NO)
--- NOTE | 2024-02-19 13:08 | XRAY ---
Indication: Left periumbilical pain. Multiple contiguous axial images obtained through the abdomen and pelvis without contrast. Comparison: None Lung bases demonstrates mild bibasilar subsegmental atelectasis/scarring and tiny left lower lobe calcified granuloma. Heart not enlarged. Small hiatal hernia. Stomach mildly distended with food/fluid. Gallbladder is also mildly distended with 5 mm stone in the dependent portion. Noncontrasted stomach and bowel loops appear nonobstructed. Normal appendix. Scattered descending and sigmoid diverticulosis without diverticulitis. Both kidneys demonstrates multiple tiny nonobstructing micro-calculi. A few tiny splenic calcified granulomas. No free fluid/air. Remaining liver, gallbladder, pancreas, spleen, adrenal glands, kidneys, ureters, and bladder are unremarkable for noncontrast exam. Moderate scattered aortoiliac calcifications without AAA. Osseous structures intact with osteopenia and minimal/mild degenerative changes throughout spine. No ventral or inguinal hernias. Impression: 1. Mild distended gallbladder with tiny gallstone. Finding abnormal in this postprandial patient. Gallbladder sonogram may yield further information. 2. Chronic findings including hiatal hernia, colonic diverticulosis, nonobstructing bilateral renal micro-calculi, arteriosclerotic disease, chronic bony findings, and old granulomatous disease.
--- NOTE | 2024-02-19 15:00 | ERPHSYRPT ---
- History of Present Illness Time Seen by Provider: 02/19/24 12:11 Historian: patient, family Exam Limitations: no limitations Patient Subjective Stated Complaint: pt here diffuse abd pain for 2 days now, no other co's. Triage Nursing Assessment: pt walked in, resp easy, skin w/d/p. alert and oreinted, abd distended which is normal for him. moves all ext well. Physician History: 78 years old with a history of coronary artery disease with CABG/multiple stenting, hypertension, hyperlipidemia presented in the ER with 2 days history of left side abdominal pain more in the flank/periumbilical area and some in the lower abdomen. Patient reported it feels like a band like soreness, moderate intensity pain with movements and palpation and better with being still in a certain position in a recliner. Denies any associated nausea or vomiting. No urinary complaints. Denies any chest pain palpitations or shortness of breath. No fever or chills reported. Allergies/Adverse Reactions: poliomyelitis vaccine, live oral Allergy (Verified 02/19/24 12:08) [id number] Reductase Inhibitor Allergy (Verified 02/19/24 12:08) Home Medications: Aspirin [Aspir 81] 81 mg PO DAILY 03/20/12 [History] Metoprolol Tartrate 25 mg [Lopressor 25MG Tab] 100 mg PO BID 03/20/12 [History] Isosorbide Mononitrate 30 mg [Imdur 30 MG] 60 mg PO DAILY 06/05/18 [History ] Ranolazine 500 MG [Ranexa 500 MG] 500 mg PO BID 06/05/18 [History] Esomeprazole Magnesium [Nexium 24Hr] 20 mg PO DAILY 12/02/19 [History] Ezetimibe 10 mg [Zetia 10 MG] 10 mg PO DAILY 12/02/19 [History] Lisinopril 20 mg [Zestril 20 MG] 20 mg PO DAILY 12/02/19 [History] Rosuvastatin Calcium 5 mg PO WEEKLY 12/02/19 [History] Hx Tetanus, Diphtheria Vaccination/Date Given: No Hx Influenza Vaccination/Date Given: No Hx Pneumococcal Vaccination/Date Given: No Immunizations Up to Date: Yes Travel Risk - International Travel Have you traveled outside of the country in past 3 weeks: No - Emerging Infectious Disease Are you exhibiting symptoms associated with any current EIDs: Yes Symptoms: Abdominal Pain - Review of Systems Constitutional: No Symptoms Eyes: No Symptoms Ears, Nose, & Throat: No Symptoms Respiratory: No Symptoms Cardiac: No Symptoms Abdominal/Gastrointestinal: Abdominal Pain Genitourinary Symptoms: No Symptoms Musculoskeletal: No Symptoms Skin: No Symptoms Neurological: No Symptoms Endocrine: No Symptoms Hematologic/Lymphatic: No Symptoms - Past Medical History Pertinent Past Medical History: Yes Neurological History: No Pertinent History ENT History: No Pertinent History Cardiac History: Coronary Artery Disease, High Cholesterol, Hypertension Respiratory History: COPD Endocrine Medical History: No Pertinent History Musculoskeletal History: No Pertinent History GI Medical History: GERD History: No Pertinent History Psycho-Social History: No Pertinent History Male Reproductive Disorders: No Pertinent History Other Medical History: stage 4 renal failure - Past Surgical History Past Surgical History: Yes Neuro Surgical History: No Pertinent History Cardiac: CABG, Cardiac Catheterization, Cardiac Stent Respiratory: No Pertinent History Gastrointestinal: No Pertinent History Genitourinary: No Pertinent History Musculoskeletal: No Pertinent History Male Surgical History: No Pertinent History Other Surgical History: 5 stents Significant Family History: no pertinent family hx - Social History Smoking Status: Current every day smoker How long have you smoked: 50 YEARS Exposure to second hand smoke: Yes Drug Use: none Patient Lives Alone: No - Nursing Vital Signs Nursing Vital Signs: Initial Vital Signs Temperature 97.1 F 02/19/24 12:10 Pulse Rate 62 02/19/24 12:10 Respiratory Rate 18 02/19/24 12:10 Blood Pressure 174/89 02/19/24 12:10 O2 Sat by Pulse Oximetry 97 02/19/24 12:10 Pain Scale Pain Intensity 8 - Physical Exam General Appearance: no apparent distress, alert Eye Exam: PERRL/EOMI Ears, Nose, Throat Exam: normal ENT inspection Neck Exam: normal inspection, supple, full range of motion Respiratory Exam: normal breath sounds, lungs clear Cardiovascular Exam: regular rate/rhythm, normal heart sounds Gastrointestinal/Abdomen Exam: soft, normal bowel sounds, tenderness (Tenderness in periumbilical and left side with no guarding or rebound.) Back Exam: normal inspection Extremity Exam: normal inspection, normal range of motion Neurologic Exam: alert, oriented x 3, cooperative Skin Exam: normal color SpO2 Interpretation: normal SpO2: 90 O2 Delivery: Room Air Ordered Tests: Active Orders 24 hr Category Date Time Status IV Insertion STAT Care 02/19/24 12:25 Completed NPO (ED) STAT Care 02/19/24 12:25 Completed ABDOMEN AND PELVIS W/0 CONTRAS [CT] Stat Exams 02/19/24 12:26 Completed GALLBLADDER [US] Stat Exams 02/19/24 15:03 Completed CBC W DIFF Stat Lab 02/19/24 12:40 Completed CMP Stat Lab 02/19/24 12:40 Completed LIPASE Stat Lab 02/19/24 12:40 Completed Lactic Acid Stat Lab 02/19/24 12:25 Completed TROPONIN Q4H Lab 02/19/24 12:40 Completed UA W/RFX UR CULTURE Stat Lab 02/19/24 12:28 Completed Medication Summary Discontinued Medications Generic Name Dose Route Start Last Admin Trade Name Freq PRN Reason Stop Dose Admin Morphine Sulfate 4 mg 02/19/24 12:25 02/19/24 12:30 Morphine Sulfate 4 Mg/Ml Injection IV 02/19/24 12:26 4 mg STAT ONE Administration Morphine Sulfate Confirm 02/19/24 12:28 Morphine Sulfate 4 Mg/Ml Injection Administered 02/19/24 12:29 Dose 4 mg .ROUTE .STK-MED ONE Ondansetron HCl 4 mg 02/19/24 12:25 02/19/24 12:30 Ondansetron Hcl 4 Mg/2 Ml Vial IV 02/19/24 12:26 4 mg STAT ONE Administration Ondansetron HCl Confirm 02/19/24 12:28 Ondansetron Hcl 4 Mg/2 Ml Vial Administered 02/19/24 12:29 Dose 4 mg .ROUTE .STK-MED ONE Lab/Rad Data: Laboratory Result Diagrams 02/19/24 12:40 02/19/24 12:40 Laboratory Results 02/19/24 02/19/24 02/19/24 Range/Units 12:40 12:40 12:40 WBC 8.2 (4.0-10.5) x10^3/uL RBC 4.29 (4.1-5.6) x10^6/uL Hgb 13.4 (12.5-18.0) g/dL Hct 39.9 L (42-50) % MCV 93.0 (78-100) fL MCH 31.2 (26-32) pg MCHC 33.6 (32-36) g/dL RDW 13.5 (11.5-14.0) % Plt Count 143 L (150-450) x10^3/uL MPV 10.2 (7.5-11.0) fL Gran % 74.5 H (36.0-66.0) % Immature Gran % (Auto) 0.2 (0.00-0.4) % Nucleat RBC Rel Count 0.0 (0.00-0.1) % Eos # (Auto) 0.23 (0-0.5) x10^3/uL Immature Gran # (Auto) 0.02 (0.00-0.03) x10^3u/L Absolute Lymphs (auto) 1.34 (1.0-4.6) x10^3/uL Absolute Monos (auto) 0.45 (0.0-1.3) x10^3/uL Absolute Nucleated RBC 0.00 (0.00-0.01) x10^3u/L Lymphocytes % 16.4 L (24.0-44.0) % Monocytes % 5.5 (0.0-12.0) % Eosinophils % 2.8 (0.00-5.0) % Basophils % 0.6 (0.0-0.4) % Absolute Granulocytes 6.06 (1.4-6.9) x10^3/uL Basophils # 0.05 (0-0.4) x10^3/uL Sodium 142 (135-145) mmol/L Potassium 3.7 (3.5-5.1) mmol/L Chloride 112 H (98-107) mmol/L Carbon Dioxide 24 (22-30) mmol/L Anion Gap 10.3 (5-15) MEQ/L BUN 16 (9-20) mg/dL Creatinine 1.50 H (0.66-1.25) mg/dL Estimated GFR 47.4 ML/MIN Glucose 125 H (74-106) mg/dL Lactic Acid (0.4-2.0) Calcium 8.3 L (8.4-10.2) mg/dL Total Bilirubin 0.50 (0.2-1.3) mg/dL AST 18 (17-59) U/L ALT 16 (0-50) U/L Alkaline Phosphatase 79 (38-126) U/L Troponin I < 0.012 (0.000-0.033) ng/mL Serum Total Protein 6.8 (6.3-8.2) g/dL Albumin 3.7 (3.5-5.0) g/dL Lipase 146 (23-300) U/L Urine Color (Yellow) Urine Appearance (Clear) Urine pH (4.6-8.0) Ur Specific [place] (1.005-1.030) Urine Protein (Negative) Urine Glucose (UA) (Negative) mg/dL Urine Ketones (Negative) Urine Blood (Negative) Urine Nitrite (Negative) Urine Bilirubin (Negative) Urine Urobilinogen (0.2) mg/dL Ur Leukocyte Esterase (Negative) U Hyaline Cast (Auto) (0-2) /LPF Urine Microscopic RBC (0-5) /HPF Urine Microscopic WBC (0-5) /HPF Ur Epithelial Cells (None Seen) /HPF Urine Bacteria (None Seen) /HPF Urine Culture Reflexed (NO) 02/19/24 02/19/24 Range/Units 12:28 12:25 WBC (4.0-10.5) x10^3/uL RBC (4.1-5.6) x10^6/uL Hgb (12.5-18.0) g/dL Hct (42-50) % MCV (78-100) fL MCH (26-32) pg MCHC (32-36) g/dL RDW (11.5-14.0) % Plt Count (150-450) x10^3/uL MPV (7.5-11.0) fL Gran % (36.0-66.0) % Immature Gran % (Auto) (0.00-0.4) % Nucleat RBC Rel Count (0.00-0.1) % Eos # (Auto) (0-0.5) x10^3/uL Immature Gran # (Auto) (0.00-0.03) x10^3u/L Absolute Lymphs (auto) (1.0-4.6) x10^3/uL Absolute Monos (auto) (0.0-1.3) x10^3/uL Absolute Nucleated RBC (0.00-0.01) x10^3u/L Lymphocytes % (24.0-44.0) % Monocytes % (0.0-12.0) % Eosinophils % (0.00-5.0) % Basophils % (0.0-0.4) % Absolute Granulocytes (1.4-6.9) x10^3/uL Basophils # (0-0.4) x10^3/uL Sodium (135-145) mmol/L Potassium (3.5-5.1) mmol/L Chloride (98-107) mmol/L Carbon Dioxide (22-30) mmol/L Anion Gap (5-15) MEQ/L BUN (9-20) mg/dL Creatinine (0.66-1.25) mg/dL Estimated GFR ML/MIN Glucose (74-106) mg/dL Lactic Acid 1.1 (0.4-2.0) Calcium (8.4-10.2) mg/dL Total Bilirubin (0.2-1.3) mg/dL AST (17-59) U/L ALT (0-50) U/L Alkaline Phosphatase (38-126) U/L Troponin I (0.000-0.033) ng/mL Serum Total Protein (6.3-8.2) g/dL Albumin (3.5-5.0) g/dL Lipase (23-300) U/L Urine Color Yellow (Yellow) Urine Appearance Clear (Clear) Urine pH 6.0 (4.6-8.0) Ur Specific [place] 1.025 (1.005-1.030) Urine Protein 30 (Negative) Urine Glucose (UA) Negative (Negative) mg/dL Urine Ketones Negative (Negative) Urine Blood Negative (Negative) Urine Nitrite Negative (Negative) Urine Bilirubin Negative (Negative) Urine Urobilinogen 1.0 A (0.2) mg/dL Ur Leukocyte Esterase Negative (Negative) U Hyaline Cast (Auto) NONE SEEN (0-2) /LPF Urine Microscopic RBC 0-2 (0-5) /HPF Urine Microscopic WBC 0-2 (0-5) /HPF Ur Epithelial Cells None Seen (None Seen) /HPF Urine Bacteria None Seen (None Seen) /HPF Urine Culture Reflexed NO (NO) - Progress Progress: improved, pain not gone completely Progress Note: 02/19/24 16:28 78 years old is evaluated for left-sided abdominal pain. He is given morphine for symptomatic relief, on reevaluation his pain is better but not completely resolved. Patient workup showed normal white count, fairly unremarkable chemistries has a chronic CKD which is stable around baseline. No UTI. CT abdomen pelvis without contrast is showing distended gallbladder with a stone but no other acute intra-abdominal pelvic findings suggesting acute pathology. I have obtained gallbladder ultrasound as well which is negative for any acute cholecystitis symptoms. Patient pain is still there and not completely resolved on reevaluation. He is offered more pain medications but declined. He probably have muscular pain, recommended taking Tylenol, offered pain medication to go home but does not want it. Discussed signs symptoms of worsening renal return to ER which she seems understanding. Stable for discharge. Counseled pt/family regarding: lab results, diagnosis, need for follow-up, rad results Medical Desision Making - Independent Historian Additional History obtained from: Spouse - Diagnostic Testing Diagnostic test were ordered, analyzed, and reviewed by me: Yes Radiological Interpretation: Reviewed by me - Departure Departure Disposition: Home Clinical Impression: Abdominal pain Condition: Stable Critical Care Time: No Referrals: [facility],'[facility] [Primary Care Provider] - Follow up with PCP 1 day Instructions: Severe Abdominal Pain, Adult (DC) Additional Instructions: Follow-up with primary care for reevaluation in 1 to 2 days. Take Tylenol as needed. Return to ER for intractable abdominal pain, nausea vomiting /diarrhea/fever chills etc.
[2024-02-19 15:13] VITALS: O2SAT 90
--- NOTE | 2024-02-19 15:40 | XRAY ---
Indication: Pain. Two-dimensional gallbladder sonogram performed. Comparison: None Pancreas not well-seen due to overlying bowel gas. Gallbladder mildly distended with 6 mm stone in the neck of the gallbladder. No abnormal gallbladder wall thickening or pericholecystic fluid. Common bile duct measures 4.5 mm. No intrahepatic biliary distention. Mild diffuse fatty echogenic liver without focal solid/cystic mass. Right kidney measures 10.9 x 5.8 x 7.3 cm and sonographically unremarkable. Impression: Cholelithiasis without cholecystitis/biliary distention. Fatty liver. Nonvisualization pancreas.
[2024-02-19 16:39] VITALS: BP 153/82; PULSE 58; RESP 23
== END 2024-02-19 16:39 | disposition home or self-care (01) ==
LOC: ED 11:53
DX: R10.33 Periumbilical pain (principal); R10.9 Unspecified abdominal pain; E78.5 Hyperlipidemia, unspecified; I12.9 Hypertensive chronic kidney disease with stage 1 through stage 4 chronic kidney disease, or unspecified chronic kidney disease; N18.4 Chronic kidney disease, stage 4 (severe); Z79.899 Other long term (current) drug therapy; Z72.0 Tobacco use
CPT/HCPCS: 36000; 36415; 74176; 76705; 80053; 81001; 83605; 83690; 84484; 85025; 96374; 96375; 99284; J2270; J2405

== ENCOUNTER 2025-01-03 15:28 | Emergency (ER) | payer OTHER ==
--- NOTE | 2025-01-03 16:04 | ERPHSYRPT ---
- History of Present Illness Time Seen by Provider: 01/03/25 16:03 Source: patient, family Exam Limitations: no limitations Physician History: This is a 79-year-old white male patient who receives his primary care mostly at the [facility]. He had called them prior to arrival to explain to them that he has had some left leg swelling over the last 2 to 3 weeks. He denies chest pain. He has chronic shortness of breath that has not changed in its intensity. The NH center told him to come to the emergency department to be evaluated. Patient is a daily smoker of tobacco cigarettes. Patient has a history of coronary artery disease, chronic renal disease, hyperlipidemia, gastroesophageal reflux disease and hypertension. Method of Injury: other (No injury) Occurred: other (Present for 2 to 3 weeks) Severity of Pain-Max: none Severity of Pain-Current: none Lower Extremities Pain: leg: left, foot: left, ankle: left Modifying Factors: Improves With: nothing Associated Symptoms: none Allergies/Adverse Reactions: poliomyelitis vaccine, live oral Allergy (Verified 02/19/24 12:08) [id number] Reductase Inhibitor Allergy (Verified 02/19/24 12:08) famotidine [From Pepcid] Adverse Reaction (Verified 01/03/25 16:06) Vomiting Home Medications: Aspirin [Aspir 81] 81 mg PO DAILY 03/20/12 [History] Metoprolol Tartrate 25 mg [Lopressor 25MG Tab] 100 mg PO BID 03/20/12 [History] Isosorbide Mononitrate 30 mg [Imdur 30 MG] 60 mg PO DAILY 06/05/18 [History] Ranolazine 500 MG [Ranexa 500 MG] 500 mg PO BID 06/05/18 [History] Ezetimibe 10 mg [Zetia 10 MG] 10 mg PO DAILY 12/02/19 [History] Rosuvastatin Calcium 5 mg PO WEEKLY 12/02/19 [History] Omeprazole 1 tab PO DAILY 01/03/25 [History] Hx Tetanus, Diphtheria Vaccination/Date Given: No Hx Influenza Vaccination/Date Given: No Hx Pneumococcal Vaccination/Date Given: No Travel Risk - International Travel Have you traveled outside of the country in past 3 weeks: No - Emerging Infectious Disease Are you exhibiting symptoms associated with any current EIDs: Yes Symptoms: Abdominal Pain - Review of Systems Constitutional: No Symptoms Eyes: No Symptoms Ears, Nose, & Throat: No Symptoms Respiratory: No Symptoms Cardiac: No Symptoms Abdominal/Gastrointestinal: No Symptoms Genitourinary Symptoms: No Symptoms Musculoskeletal: No Symptoms Skin: No Symptoms Neurological: No Symptoms Psychological: No Symptoms Endocrine: No Symptoms Hematologic/Lymphatic: No Symptoms Immunological/Allergic: No Symptoms All Other Systems: Reviewed and Negative - Past Medical History Pertinent Past Medical History: Yes Neurological History: No Pertinent History ENT History: No Pertinent History Cardiac History: Coronary Artery Disease, High Cholesterol, Hypertension Respiratory History: COPD Endocrine Medical History: No Pertinent History Musculoskeletal History: No Pertinent History GI Medical History: GERD History: No Pertinent History Psycho-Social History: No Pertinent History Male Reproductive Disorders: No Pertinent History Other Medical History: stage 4 renal failure - Past Surgical History Past Surgical History: Yes Neuro Surgical History: No Pertinent History Cardiac: CABG, Cardiac Catheterization, Cardiac Stent Respiratory: No Pertinent History Gastrointestinal: No Pertinent History Genitourinary: No Pertinent History Musculoskeletal: No Pertinent History Male Surgical History: No Pertinent History Other Surgical History: 5 stents Significant Family History: no pertinent family hx - Social History Smoking Status: Current every day smoker How long have you smoked: 50 YEARS Exposure to second hand smoke: Yes Drug Use: none Patient Lives Alone: No - Social Determinants of Health Will the patient participate in the screening: Declined to provide - Nursing Vital Signs Nursing Vital Signs: Initial Vital Signs Temperature 97.6 F 01/03/25 15:59 Pulse Rate 64 01/03/25 15:59 Respiratory Rate 18 01/03/25 15:59 Blood Pressure 168/76 01/03/25 15:59 O2 Sat by Pulse Oximetry 96 01/03/25 15:59 Pain Scale Pain Intensity 0 - Physical Exam General Appearance: no apparent distress, alert Eyes, Ears, Nose, Throat Exam: normal ENT inspection, moist mucous membranes Neck Exam: normal inspection, non-tender, supple, full range of motion Cardiovascular/Respiratory Exam: chest non-tender, normal breath sounds, regular rate/rhythm, heart sounds normal, no respiratory distress Gastrointestinal/Abdominal Exam: non-tender Back Exam: normal inspection, normal range of motion, No CVA tenderness, No vertebral tenderness Hips Exam: bilateral: non-tender, normal inspection, normal range of motion, no evidence of injury Legs Exam: right leg: normal inspection, left leg: swelling, bilateral leg: non- tender, normal range of motion Knees Exam: bilateral knee: non-tender, normal inspection, normal range of motion, no evidence of injury Ankle Exam: right ankle: normal inspection, normal range of motion, no evidence of injury, left ankle: swelling, bilateral ankle: non-tender Foot Exam: right foot: non-tender, normal inspection, left foot: swelling, bilateral foot: normal range of motion, no evidence of injury Neuro/Tendon Exam: normal sensation, normal motor functions, normal tendon functions, responds to pain, no evidence tendon injury Mental Status Exam: alert, oriented x 3, cooperative Skin Exam: normal color, warm, dry SpO2 Interpretation: normal O2 Delivery: Room Air - Course Nursing assessment & vital signs reviewed: Yes Ordered Tests: Active Orders 24 hr Category Date Time Status VENOUS UNILAT/LIMITED EXTREMIT [US] Stat Exams 01/03/25 16:21 Completed CBC W DIFF Stat Lab 01/03/25 17:07 Completed CMP Stat Lab 01/03/25 17:07 Completed NT PRO BNPII Stat Lab 01/03/25 17:07 Completed Lab/Rad Data: Laboratory Result Diagrams 01/03/25 17:07 01/03/25 17:07 Laboratory Results 01/03/25 01/03/25 01/03/25 Range/Units 17:07 17:07 17:07 WBC 7.3 (4.23-9.07) x10^3/uL RBC 4.30 L (4.63-6.08) x10^6/uL Hgb 13.2 L (13.7-17.5) g/dL Hct 39.2 L (40.1-51.0) % MCV 91.2 (79.0-92.2) fL MCH 30.7 (25.7-32.2) pg MCHC 33.7 (32.3-36.5) g/dL RDW 13.3 (11.6-14.4) % Plt Count 170 (163-337) x10^3/uL MPV 10.1 (9.4-12.4) fL Gran % 68.9 H (34.0-67.9) % Immature Gran % (Auto) 0.3 (0.001-0.429) % Nucleat RBC Rel Count 0.0 (0.00-0.2) % Eos # (Auto) 0.25 (0.04-0.54) x10^3/uL Immature Gran # (Auto) 0.02 (0.001-0.031) x10^3u/L Absolute Lymphs (auto) 1.47 (1.32-3.57) x10^3/uL Absolute Monos (auto) 0.50 (0.30-0.82) x10^3/uL Absolute Nucleated RBC 0.00 (0.00-0.012) x10^3u/L Lymphocytes % 20.1 L (21.8-53.1) % Monocytes % 6.8 (5.3-12.2) % Eosinophils % 3.4 (0.8-7.0) % Basophils % 0.5 (0.2-1.2) % Absolute Granulocytes 5.04 (1.78-5.38) x10^3/uL Basophils # 0.04 (0.01-0.08) x10^3/uL Sodium 141 (135-145) mmol/L Potassium 3.9 (3.5-5.1) mmol/L Chloride 107 (98-107) mmol/L Carbon Dioxide 27 (22-30) mmol/L Anion Gap 11.5 (5-15) MEQ/L BUN 16 (9-20) mg/dL Creatinine 1.35 H (0.66-1.25) mg/dL Estimated GFR 53.4 ML/MIN Glucose 117 H (74-106) mg/dL Calcium 8.6 (8.4-10.2) mg/dL Total Bilirubin 0.40 (0.2-1.3) mg/dL AST 28 (17-59) U/L ALT 29 (0-50) U/L Alkaline Phosphatase 103 (38-126) U/L NT-Pro-B Natriuret Pep 665 (<300) pg/mL Serum Total Protein 6.6 (6.3-8.2) g/dL Albumin 3.8 (3.5-5.0) g/dL - Progress Progress: unchanged Progress Note: 01/03/25 18:15 My medical decision making and the assignment of moderate complexity to this patient's medical issue today is based on review of the patient's past medical history, review the patient's medication list, reviewed patient drug allergy list, history present illness and physical findings on examination. The workup in this patient includes placement of intravenous line, CBC, CMP, BNP, venous Doppler of the left lower extremity. Differential diagnosis includes but is not limited to renal source of extremity edema, cardiac source of extremity edema, DVT I interpreted the patient's laboratory data results. Based on the laboratory data results, the patient has chronic renal disease with no significant change in the patient's GFR. His BNP is normal. There is no evidence of any acute, emergent medical issues based on his laboratory data results. The venous Doppler of left lower extremity preliminary report was given to me by the computer language coder/technologist. The report provided to me stated that the study shows no deep venous thrombosis. The final report interpreted by the radiologist confirms that there is no DVT in the left lower extremity. 01/03/25 18:20 Counseled pt/family regarding: lab results, diagnosis, need for follow-up, rad results Medical Desision Making - Independent Historian Additional History obtained from: Spouse - Diagnostic Testing Diagnostic test were ordered, analyzed, and reviewed by me: Yes Radiological Interpretation: Reviewed by me, Teleradiologist Report - Risk of complications Low Risk: Low risk of morbidity from additional dx testing or treatment - Departure Departure Disposition: Home Clinical Impression: Left leg swelling Condition: Stable Critical Care Time: No Referrals: [facility]OS[facility],'[facility] [Primary Care Provider] - Follow up/PCP as directed Additional Instructions: Take all your medications as prescribed. Call your prescribing provider tomorrow, 01/04/2025 to make arrangements for follow-up appointment for further evaluation and management.
[2025-01-03 16:18] VITALS: TEMP 97.6
--- NOTE | 2025-01-03 16:48 | XRAY ---
Indication: Swelling. Two-dimensional sonogram and color Doppler imaging major venous vessels left leg performed. Comparison: None No thrombus seen in the examined deep venous vessels left leg including greater saphenous vein. Veins demonstrate normal compressibility. Venous waveforms are normal with and without augmentation. Impression: Left leg negative for DVT.
[2025-01-03 17:08] LABS: Absolute Neutrophil Ct (ANC) 5.04 x10^3/uL (1.78-5.38); BASOPHIL % 0.5 % (0.2-1.2); Basophil (Absolute #) 0.04 x10^3/uL (0.01-0.08); Eosinophil % 3.4 % (0.8-7.0); Eosinophil (Absolute #) 0.25 x10^3/uL (0.04-0.54); Hematocrit 39.2 % (40.1-51.0); Hemoglobin 13.2 g/dL (13.7-17.5); IMMATURE GRAN # 0.02 x10^3u/L (0.001-0.031); IMMATURE GRAN % 0.3 % (0.001-0.429); Lymphocyte (Absolute #) 1.47 x10^3/uL (1.32-3.57); Lymphocytes % 20.1 % (21.8-53.1); Mean Cell Volume 91.2 fL (79.0-92.2); Mean Corpuscular Hemoglobin 30.7 pg (25.7-32.2); Mean Corpuscular Hgb Concent. 33.7 g/dL (32.3-36.5); Mean Platelet Volume 10.1 fL (9.4-12.4); Monocytes % 6.8 % (5.3-12.2); Neutrophil % 68.9 % (34.0-67.9); Platelet Count 170 x10^3/uL (163-337); Red Cell Distribution Width 13.3 % (11.6-14.4); White Blood Count 7.3 x10^3/uL (4.23-9.07)
[2025-01-03 17:27] LABS: ALBUMIN 3.8 g/dL (3.5-5.0); ANION GAP 11.5 MEQ/L (5-15); BILIRUBIN,TOTAL 0.4 mg/dL (0.2-1.3); Calcium 8.6 mg/dL (8.4-10.2); Creatinine 1 1.35 mg/dL (0.66-1.25); EST GLOMERULAR FILTRATION RATE 53.4 ML/MIN; Potassium 3.9 mmol/L (3.5-5.1); Total Protein 6.6 g/dL (6.3-8.2)
[2025-01-03 19:44] VITALS: BP 175/75; PULSE 61; RESP 15; O2SAT 97
== END 2025-01-03 19:44 | disposition home or self-care (01) ==
LOC: ED 15:28
DX: M79.89 Other specified soft tissue disorders (principal); I12.9 Hypertensive chronic kidney disease with stage 1 through stage 4 chronic kidney disease, or unspecified chronic kidney disease; N18.4 Chronic kidney disease, stage 4 (severe); E78.5 Hyperlipidemia, unspecified; Z79.899 Other long term (current) drug therapy; Z72.0 Tobacco use
CPT/HCPCS: 36415; 80053; 83880; 85025; 93971; 99284